=== PATIENT | female | born 1985 | race American Indian/Alaskan Native ===

== ENCOUNTER 2016-10-01 08:36 | Emergency (ER) | payer MEDICAID ==
[2016-10-01 09:02] LABS: Basophils % (Auto) 0.2 % (0.0-1.8); Eosinophils % (Auto) 0.3 % (0.0-4.3); Hematocrit 39.1 % (30.3-42.9); Hemoglobin 12.4 gm/dl (10.1-14.3); Mean Corpuscular HGB Conc 32 % (30-34); Mean Corpuscular Hemoglobin 27 pg (28-32); Mean Corpuscular Volume 86 fl (79-97); Platelet Count 181 K/mm3 (140-440); Red Blood Count 4.54 M/mm3 (3.65-5.03); Red Cell Distribution Width 13.5 % (13.2-15.2); White Blood Count 5.7 K/mm3 (4.5-11.0)
[2016-10-01 09:23] LABS: Bilirubin,Urine NEG (Negative); Blood,Urine NEG (Negative); Ketones,Urine NEG (Negative); Leukocyte Esterase,Urine NEG (Negative); Mucus,Urine 3+ /HPF; Nitrite,Urine NEG (Negative); Urobilinogen,Urine < 2.0 mg/dL (<2.0)
--- NOTE | 2016-10-01 12:01 | Ultrasound Report ---
ULTRASOUND OB LESS THAN 14 WEEKS - TRANSABDOMINAL AND TRANSVAGINAL INDICATION: , vaginal bleeding. Serum beta-hCG of 69,557 units. COMPARISON: None similar at this institution. FINDINGS: Transabdominal and transvaginal pelvic sonography performed in this patient with LMP of 06/22/2016 and estimated menstrual age of 14 weeks and 3 days. An anteverted, gravid uterus measuring approximately 10.5 x 6.6 x 7.1 cm demonstrates a single, live intrauterine gestation with heart rate of 173 beats per minute. Cervix appears closed. Small yolk sac also seen. Mean crown-rump length of 2.17 cm corresponds to 8 weeks and 4 days. Mean gestational sac diameter of 3.27 cm corresponds to 8 weeks and 1 day. A 2 x 1.5 x 2.8 cm complex/solid appearing area presumed just beneath the gestational sac appears to slightly displace/evaluate the fetus as on endovaginal images 8-15, amongst others. Minimal pelvic free fluid. Unremarkable ovaries, 2.9 x 2.2 x 2.5 cm on the right and 3.3 x 2.3 x 3 cm on the left. CONCLUSION: 1. Single, live intrauterine gestation with an ultrasound estimated age of 8 weeks and 1 days and NEELA of 05/12/2017. Please also correlate clinically for a little over 6 weeks discrepancy with the LMP. 2. Other findings, including moderate presumed subchorionic hemorrhage, as described. 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 Thank you for the opportunity to participate in this patient's care.
--- NOTE | 2016-10-01 17:25 | Emergency Department Report ---
ED Female HPI - General Chief complaint: Vaginal Bleeding Stated complaint: /ABD PAIN /LIGHT BLEEDING Time Seen by Provider: 10/01/16 16:40 Source: patient Mode of arrival: Ambulatory Limitations: No Limitations - History of Present Illness Initial comments: This is a 31-year-old female. She is previously unknown to me. She presents to the ER with minimal vaginal bleeding. Denies fevers and chills, chest pain or shortness of breath, irritative and obstructive urinary symptoms. Patient was found to be in the ER, had an intrauterine demonstrated, with a small subchorionic hemorrhage. Patient was counseled about threatened miscarriages, started on outpatient vitamins, instructed to follow up with outpatient hcc coders. MD Complaint: vaginal bleeding -: Gradual Severity: mild Consistency: intermittent Improves with: none Worsens with: none Are you Now?: Yes Associated Symptoms: vaginal bleeding. denies: vaginal discharge, fever/chills , headaches, loss of appetite, dysuria, hematuria, shortness of breath, syncope , weakness - Related Data Sexually active: Yes Previous Rx's Medication Instructions Recorded Last Taken Type Doxylamine/Pyridoxine HCl 1 each PO QHS PRN #30 tablet. 10/01/16 Unknown Rx [Philip Godinez 10-10 mg Tablet] Vit W-Ca,Fe,FA(<1 mg) 1 each PO QDAY #30 tablet 10/01/16 Unknown Rx [ Vitamins] Allergies Allergy/AdvReac Type Severity Reaction Status Date / Time No Known Allergies Allergy Unverified 10/01/16 08:41 ED Review of Systems ROS: Stated complaint: /ABD PAIN /LIGHT BLEEDING Other details as noted in HPI Constitutional: see HPI Eyes: as per HPI ENT: as per HPI Respiratory: see HPI Cardiovascular: as per HPI Gastrointestinal: as per HPI Genitourinary: as per HPI Musculoskeletal: as per HPI Skin: as per HPI Neurological: as per HPI Psychiatric: as per HPI Hematological/Lymphatic: as per HPI ED Past Medical Hx - Past Medical History Previous Medical History?: Yes Additional medical history: Vaginal delivery x 3 - Surgical History Past Surgical History?: No - Social History Smoking Status: Former Smoker Substance Use Type: Alcohol, Marijuana - Medications Home Medications: Home Medications Medication Instructions Recorded Confirmed Last Taken Type Doxylamine/Pyridoxine HCl 1 each PO QHS PRN #30 tablet. 10/01/16 Unknown Rx [Philip Godinez 10-10 mg Tablet] Vit W-Ca,Fe,FA(<1 mg) 1 each PO QDAY #30 tablet 10/01/16 Unknown Rx [ Vitamins] ED Physical Exam - General Limitations: No Limitations General appearance: alert, in no apparent distress - Head Head exam: Present: atraumatic, normocephalic - Eye Eye exam: Present: normal appearance - ENT ENT exam: Present: normal exam, normal orophraynx, mucous membranes moist, normal external ear exam - Neck Neck exam: Present: normal inspection, full ROM. Absent: tenderness, meningismus - Respiratory Respiratory exam: Present: normal lung sounds bilaterally. Absent: respiratory distress, wheezes, rales, rhonchi, stridor, chest wall tenderness, accessory muscle use, decreased breath sounds - Cardiovascular Cardiovascular Exam: Present: regular rate, normal rhythm, normal heart sounds. Absent: bradycardia, tachycardia, irregular rhythm, systolic murmur, diastolic murmur, rubs, gallop - GI/Abdominal GI/Abdominal exam: Present: soft, normal bowel sounds. Absent: distended, tenderness, guarding, rebound, rigid, pulsatile mass - External exam: Present: normal external exam Speculum exam: Present: vaginal bleeding Bi-manual exam: Present: normal bi-manual exam, other (escorted by nurse Juli De La Paz). Absent: cervical motion tendernes, adnexal tenderness, adnexal mass - Extremities Exam Extremities exam: Present: normal inspection, full ROM, normal capillary refill. Absent: tenderness, calf tenderness - Back Exam Back exam: Present: normal inspection, full ROM. Absent: tenderness, CVA tenderness (R), CVA tenderness (L), muscle spasm, paraspinal tenderness, vertebral tenderness - Neurological Exam Neurological exam: Present: alert, oriented X3, normal gait, other (Extraocular movements intact. Tongue midline. No facial droop. Facial sensation intact to light touch in the V1, V2, V3 distribution bilaterally. 5 and 5 strength in 4 extremities.. Sensation is intact to light touch in 4 extremities.). Absent : motor sensory deficit - Psychiatric Psychiatric exam: Present: normal affect, normal mood - Skin Skin exam: Present: warm, dry, intact, normal color. Absent: rash ED Course Vital Signs 10/01/16 10/01/16 10/01/16 08:41 14:46 15:57 Temperature 98.1 F 98.3 F Pulse Rate 70 54 L Respiratory 20 16 Rate Blood Pressure 114/77 Blood Pressure 119/79 [Left] O2 Sat by Pulse 100 100 100 Oximetry 10/01/16 17:33 Temperature 98.6 F Pulse Rate 62 Respiratory 16 Rate Blood Pressure Blood Pressure 120/80 [Left] O2 Sat by Pulse 100 Oximetry ED Medical Decision Making - Lab Data Result diagrams: 10/01/16 08:48 Vital Signs 10/01/16 10/01/16 10/01/16 08:41 14:46 15:57 Temperature 98.1 F 98.3 F Pulse Rate 70 54 L Respiratory 20 16 Rate Blood Pressure 114/77 Blood Pressure 119/79 [Left] O2 Sat by Pulse 100 100 100 Oximetry Lab Results 10/01/16 10/01/16 10/01/16 Range/Units 08:48 08:48 09:06 WBC 5.7 (4.5-11.0) K/mm3 RBC 4.54 (3.65-5.03) M/mm3 Hgb 12.4 (10.1-14.3) gm/dl Hct 39.1 (30.3-42.9) % MCV 86 (79-97) fl MCH 27 L (28-32) pg MCHC 32 (30-34) % RDW 13.5 (13.2-15.2) % Plt Count 181 (140-440) K/mm3 Lymph % (Auto) 10.1 L (13.4-35.0) % [place] % (Auto) 7.1 (0.0-7.3) % Eos % (Auto) 0.3 (0.0-4.3) % Baso % (Auto) 0.2 (0.0-1.8) % Lymph # 0.6 L (1.2-5.4) K/mm3 [place] # 0.4 (0.0-0.8) K/mm3 Eos # 0.0 (0.0-0.4) K/mm3 Baso # 0.0 (0.0-0.1) K/mm3 Seg Neutrophils % 82.3 H (40.0-70.0) % Seg Neutrophils # 4.6 (1.8-7.7) K/mm3 HCG, Quant 20525 H (0-4) mIU/mL Urine Color Yellow (Yellow) Urine Turbidity Clear (Clear) Urine pH 5.0 (5.0-7.0) Ur Specific [place] 1.027 (1.003-1.030) Urine Protein 30 mg/dl (Negative) mg/dL Urine Glucose (UA) Neg (Negative) mg/dL Urine Ketones Neg (Negative) mg/dL Urine Blood Neg (Negative) Urine Nitrite Neg (Negative) Urine Bilirubin Neg (Negative) Urine Urobilinogen < 2.0 (<2.0) mg/dL Ur Leukocyte Esterase Neg (Negative) Urine WBC (Auto) 1.0 (0.0-6.0) /HPF Urine RBC (Auto) 1.0 (0.0-6.0) /HPF U Epithel Cells (Auto) 1.0 (0-13.0) /HPF Urine Mucus 3+ /HPF Blood Type 10/01/16 Range/Units 13:35 WBC (4.5-11.0) K/mm3 RBC (3.65-5.03) M/mm3 Hgb (10.1-14.3) gm/dl Hct (30.3-42.9) % MCV (79-97) fl MCH (28-32) pg MCHC (30-34) % RDW (13.2-15.2) % Plt Count (140-440) K/mm3 Lymph % (Auto) (13.4-35.0) % [place] % (Auto) (0.0-7.3) % Eos % (Auto) (0.0-4.3) % Baso % (Auto) (0.0-1.8) % Lymph # (1.2-5.4) K/mm3 [place] # (0.0-0.8) K/mm3 Eos # (0.0-0.4) K/mm3 Baso # (0.0-0.1) K/mm3 Seg Neutrophils % (40.0-70.0) % Seg Neutrophils # (1.8-7.7) K/mm3 HCG, Quant (0-4) mIU/mL Urine Color (Yellow) Urine Turbidity (Clear) Urine pH (5.0-7.0) Ur Specific [place] (1.003-1.030) Urine Protein (Negative) mg/dL Urine Glucose (UA) (Negative) mg/dL Urine Ketones (Negative) mg/dL Urine Blood (Negative) Urine Nitrite (Negative) Urine Bilirubin (Negative) Urine Urobilinogen (<2.0) mg/dL Ur Leukocyte Esterase (Negative) Urine WBC (Auto) (0.0-6.0) /HPF Urine RBC (Auto) (0.0-6.0) /HPF U Epithel Cells (Auto) (0-13.0) /HPF Urine Mucus /HPF Blood Type O POSITIVE - Radiology Data Radiology results: report reviewed, image reviewed Transvaginal ultrasound demonstrates intrauterine , subchorionic hemorrhage. - Medical Decision Making 31-year-old female with intrauterine , consistent with threatened miscarriage, Rh+, stable vital signs, nontender abdomen. She will follow up as an outpatient with gynecology. Critical care attestation.: If time is entered above; I have spent that time in minutes in the direct care of this critically ill patient, excluding procedure time. ED Disposition Clinical Impression: Threatened miscarriage Disposition: DISCHARGED TO HOME OR SELFCARE Is pt being admited?: No Does the pt Need Aspirin: No Condition: Stable Instructions: Threatened Miscarriage (ED) Additional Instructions: Cultures were sent today, results will be available in the next 3-5 days. Rest and avoid heavy lifting. Avoid strenuous physical activity. Follow-up with any of the listed gynecology specialist within the next 7-10 days. Do not engage in sexual activity until cleared by an SPEECH THERAPY ASSISTANT doctor. Have your primary care physician or hcc coders contact the medical records department to obtain culture results. Return to the ER right away with new pain , worsened pain, migration of pain, fevers or chills, intractable nausea or vomiting, inability to tolerate liquid feeds, change in mental status, confusion. Prescriptions: Doxylamine/Pyridoxine HCl [Philip Godinez 10-10 mg Tablet] 1 each PO QHS PRN #30 tablet. PRN Reason: Nausea Vit W-Ca,Fe,FA(<1 mg) [ Vitamins] 1 each PO QDAY #30 tablet Referrals: JAROCHO CLEMENS MD [Primary Care Provider] - 3-5 Days YADIRA ZEPEDA MD [Staff Physician] - 3-5 Days [facility] [Provider Group] - 3-5 Days [facility] [Provider Group] - 3-5 Days [facility] [Provider Group] - 3-5 Days
[2016-10-01 17:34] VITALS: BP 120/80
== END 2016-10-01 17:35 | disposition home or self-care (01) ==
LOC: ED 08:36
DX: O20.0 Threatened abortion (principal); O99.320 Drug use complicating pregnancy, unspecified trimester; Z87.891 Personal history of nicotine dependence; Z3A.00 Weeks of gestation of pregnancy not specified; F12.10 Cannabis abuse, uncomplicated
CPT/HCPCS: 36415; 76801; 76817; 81001; 84702; 85025; 86900; 86901; 87591; 99284